=== PATIENT | female | born 1985 | race Caucasian/White ===

== ENCOUNTER 2024-11-23 00:03 | Emergency (ER) | payer MEDICAID ==
[~2024-11-23] VITALS: Ht 162.6 cm; Wt 62.0 kg
[2024-11-23 00:06] VITALS: TEMP 97.6
[2024-11-23 00:43] LABS: URINE HCG POSITIVE (NEG)
[2024-11-23 00:47] LABS: BILIRUBIN,URINE NEGATIVE (Neg); CLARITY,URINE CLEAR (Clear); COLOR,URINE YELLOW (Yellow); GLUCOSE, URINE NEGATIVE (Neg); KETONES,URINE NEGATIVE (Neg); LEUKOCYTE ESTERASE ,URINE NEGATIVE (Neg); NITRITES, URINE NEGATIVE (Neg); OCCULT BLOOD,URINE MODERATE (Neg); PROTEIN,URINE NEGATIVE (Neg); UROBILINOGEN,URINE 0.2 E.U/dL (0.2-1.0)
[2024-11-23 00:52] LABS: UA COLLECTION TYPE CLN CATCH MIDSTREAM
[2024-11-23 00:53] LABS: BACTERIA,URINE NONE SEEN /HPF (Neg); SQUAMOUS EPITHELIAL CELL,UR FEW /LPF (FEW); WBC,URINE NONE SEEN /HPF (0-4)
[2024-11-23 01:10] VITALS: BP 114/74; PULSE 92; RESP 16; O2SAT 99
== END 2024-11-23 01:12 | disposition home or self-care (01) ==
LOC: ER 00:05
DX: O20.9 Hemorrhage in early pregnancy, unspecified (principal); Z3A.16 16 weeks gestation of pregnancy
CPT/HCPCS: 81001; 81025; 99283; 99284